=== PATIENT | female | born 1960 | race Caucasian/White ===

== ENCOUNTER 2024-09-04 07:55 | Outpatient (CLI) | payer OTHER | END 2024-09-04 08:09 | disposition home or self-care (01) | LOC: TOM 07:55 | PROVIDERS: ATTEND Internal Medicine Gastroenterology | DX: R19.5 Other fecal abnormalities (principal); K57.92 Diverticulitis of intestine, part unspecified, without perforation or abscess without bleeding; K59.00 Constipation, unspecified ==